=== PATIENT | male | born 1935 | race Caucasian/White ===

== ENCOUNTER 2020-08-12 10:36 | Day surgery (SDC) | payer MEDICARE, OTHER ==
[~2020-08-12] VITALS: Ht 180.3 cm; Wt 61.0 kg
[2020-08-12] MEDS ORDERED: MULVITA PO (11:02)
[2020-08-12] MEDS ORDERED: TRAZ50 PO (11:03)
--- NOTE | 2020-08-12 11:35 | NUR ---
Ambulatory in Day Surgery History, Chart, Medications and Allergies reviewed before start of procedure.Patient confirms NPO status and agrees with scheduled surgery. Surgical site prepped with 2% Chlorhexidine cloth wipe. Lungs clear T/O to Auscultation. Patient States Post-Procedure ride home has been arranged.
--- NOTE | 2020-08-12 11:43 | NUR ---
08/12/20 1143 Lupe Lopez History, Chart, Medications and Allergies reviewed before start of procedure.Patient confirms NPO status and agrees with scheduled surgery.3-LEAD EKG REVIEWED WITH PHYSICIAN PRIOR TO START OF PROCEDURE.MONITOR INTACT WITH CONTINUOUS PULSE OXIMETRY AND INTERMITTENT BP.O2 VIA N/C INTACT THROUGHOUT SEDATION/PROCEDURE. See Anesthesia record.
--- NOTE | 2020-08-12 13:47 | NUR ---
SPOKE WITH [facility] OFFICE WHO GAVE ME [facility] PHONE NUMBER FOR SET UP WITH [facility] FOR PEG TUBE. [facility] STATES THEY DON'T HAVE ACCESS TO OUTPT PT ACCOUNTS TO SET UP HOME VISITS. THIS RN CALLED [facility] AND WAS GIVEN FAX NUMBER TO SEND OVER [employer]. [facility] WILL THEN CONTACT DR JOSHI OFFICE FOR THE REMAINING INFO. EXPLAINED THIS TO PT AND HIS TIMO. PER DR WASHINGTON, PT IS OKAY TO RESUME EATING BY MOUTH UNTIL [facility] SEES PT FOR FEEDING TUBE.
--- NOTE | 2020-08-12 13:48 | NUR ---
Patient up to Ambulate independently. Gait steady. Discharge instructions reviewed with patient. Patient verbalizes understanding. Copy given to patient to take home. REVIEWED WITH PT PER PT REQUEST. Discharged via wheelchair to private car for ride home WITH AND DAUGHTER. SEE [facility] NOTE REGARDING DIETARLY CONSULT FOR PEG TUBE USE.
== END 2020-08-12 13:44 | disposition home or self-care (01) ==
LOC: ORSCMMR 10:36 → ORD 10:36 → ORSCMMR 10:39 → ORD 13:44
PROVIDERS: Surgery
PROC: 0DH63UZ Insertion of Feeding Device into Stomach, Percutaneous Approach (ICD-10-PCS; principal; 2020-08-12 13:00)
DX: R13.12 Dysphagia, oropharyngeal phase (principal); R63.4 Abnormal weight loss; Z79.899 Other long term (current) drug therapy
CPT/HCPCS: C1769; J0690; J2704; J7120

== ENCOUNTER 2023-07-01 12:37 | Emergency (ER) | payer OTHER, MEDICARE ==
[~2023-07-01] VITALS: Ht 180.3 cm; Wt 81.7 kg
[~2023-07-01 12:37] MED LIST: MULVITA PO; TRAZ50 PO
[2023-07-01] MEDS ORDERED: Ketorolac Tromethamine 30mg Vial IM ONE (13:45)
[2023-07-01] MEDS ORDERED: Metoclopramide HCl 5MG / ML 2ML Vial IV ONE (14:25)
[2023-07-01 14:54] LABS: BASOPHILS ABSOLUTE AUTO 0.09 K/mm3 (0.00-0.23); BASOPHILS PERCENT AUTO 1 % (0-2); EOSINOPHILS ABSOLUTE AUTO 0.33 K/mm3 (0.00-0.68); EOSINOPHILS PERCENT AUTO 3 % (0-6); Hematocrit 47.1 % (37.0-53.0); Hemoglobin 16.2 g/dL (13.5-17.5); IMMATURE GRAN ABSOLUTE AUTO 0.09 K/mm3 (0.00-0.10); IMMATURE GRAN PERCENT AUTO 1 % (0-1); LYMPHOCYTES ABSOLUTE AUTO 0.97 K/mm3 (0.84-5.20); LYMPHOCYTES PERCENT AUTO 10 % (21-46); MONOCYTES ABSOLUTE AUTO 0.97 K/mm3 (0.16-1.47); MONOCYTES PERCENT AUTO 10 % (4-13); Mean Corpuscular HGB Conc 34.4 g/dL (31.5-36.5); Mean Corpuscular Volume 99 fL (80-100); NEUTROPHILS ABSOLUTE AUTO 7.26 K/mm3 (1.96-9.15); NEUTROPHILS PERCENT AUTO 75 % (41-73); RDW Coefficient Variation 12.2 % (11.7-14.2); RDW Standard Deviation 43.9 fL (35.1-46.3); Red Blood Cell Count 4.77 M/mm3 (4.30-5.90); White Blood Cell Count 9.71 K/mm3 (4.00-11.30)
[2023-07-01 14:55] LABS: Prothrombin Time Results 10.5 Sec (9.7-11.5)
[2023-07-01 15:14] LABS: Anion Gap 2 mmol/L (6-16); Blood Urea Nitrogen 26 mg/dL (8-24); Bun/Creatinine Ratio 42.2 (12.0-20.0); CO2, Blood 31 mmol/L (21-32); Calcium, Blood 9.6 mg/dL (8.5-10.1); Chloride, Blood 103 mmol/L (98-108); Creatinine, Blood 0.62 mg/dL (0.60-1.20); Ethanol (Alcohol), Blood, Med <3 mg/dL; Glomerular Filtration Rate 94 (60-); Glucose, Blood 93 mg/dL (70-99); Potassium, Blood 5.1 mmol/L (3.5-5.5); Sodium, Blood 136 mmol/L (136-145)
[2023-07-01 15:18] LABS: Platelet Count 173 K/mm3 (150-400)
[2023-07-01 15:19] LABS: Mean Platelet Volume 11.4 fL (9.1-12.4)
[2023-07-01] MEDS ORDERED: Tetanus and Diphtheria Toxoid 0.5 ML INJ IM ONE (16:20)
[2023-07-01] MEDS ORDERED: Levodopa/Carbidopa 100 / 25 MG Tab PO ONE (16:25)
[2023-07-01 19:40] VITALS: BP 138/74
== END 2023-07-01 19:44 | disposition home or self-care (01) ==
LOC: ER 12:37
PROVIDERS: Student in an Organized Health Care Education/Training Program
DX: S06.6X0A Traumatic subarachnoid hemorrhage without loss of consciousness, initial encounter (principal); S01.81XA Laceration without foreign body of other part of head, initial encounter; G20.A1 Parkinson's disease without dyskinesia, without mention of fluctuations; Z87.891 Personal history of nicotine dependence; G30.9 Alzheimer's disease, unspecified; Z79.899 Other long term (current) drug therapy; W01.198A Fall on same level from slipping, tripping and stumbling with subsequent striking against other object, initial encounter; Y92.014 Private driveway to single-family (private) house as the place of occurrence of the external cause; Y93.01 Activity, walking, marching and hiking
CPT/HCPCS: 12011; 70450; 71101; 80048; 85025; 85610; 85730; 90471; 90714; 96374-59; 99284-25; A9270; J2765